=== PATIENT | female | born 1955 | race Caucasian/White ===

== ENCOUNTER 2019-08-22 07:35 | Day surgery (SDC) | payer OTHER | END 2019-08-22 22:43 | disposition home or self-care (01) | LOC: MOI US 07:35 | DX: N60.82 Other benign mammary dysplasias of left breast (principal); R92.8 Other abnormal and inconclusive findings on diagnostic imaging of breast | CPT/HCPCS: 19083; 77065; A4648; G0279 ==

== ENCOUNTER → 2022-05-07 | Outpatient (CLI) | payer OTHER | LOC: LAB 08:06 → LAB SHORT 08:06 | DX: R30.0 Dysuria (principal) | CPT/HCPCS: 87077; 87086; 87186 ==